=== PATIENT | male | born 1960 | race Hispanic/Latino ===

== ENCOUNTER 2025-04-04 08:32 | Emergency (ER) | payer BC ==
[2025-04-04 09:38] LABS: INR-International Normal Ratio 1.2; PTT 29.8 sec (22.9-36.1); Prothrombin Time 15.7 sec (12.0-14.7)
[2025-04-04 09:40] LABS: Hematocrit 38.9 % (42.0-52.0); Hemoglobin 13.4 g/dL (14.0-18.0); Mean Corpuscular Hemoglobin 30.6 pg (27.0-31.0); Mean Corpuscular Volume 88.8 fL (78.0-98.0); Platelet Count 406 10x3/uL (130-400); Red Blood Cell (RBC) Count 4.38 mill/uL (4.70-6.10); White Blood Cell (WBC) Count 7.45 10x3/uL (4.8-10.8)
[2025-04-04 09:49] LABS: ALT (SGPT) 16 U/L (Less than 45); AST (SGOT) 40 U/L (11-34); Albumin 1.9 g/dL (3.1-4.5); Alkaline Phosphatase 103 U/L (40-110); Anion Gap 12 mmol/L (10-20); BUN (Urea Nitrogen) 14 mg/dL (8.4-25.7); Bilirubin, Total 0.3 mg/dL (0.3-1.2); Calc. Creatinine Clearance 0 mL/min (70-130); Calcium 7.6 mg/dL (7.8-10.44); Carbon Dioxide 21 mmol/L (23-31); Chloride 101 mmol/L (98-107); Globulin 4.4 g/dL (2.4-3.5); Glucose 233 mg/dL (80-115); Lipase 54 U/L (8-78); Potassium 4.3 mmol/L (3.5-5.1); Sodium 130 mmol/L (136-145)
[2025-04-04 10:11] LABS: CAUTI Indications for Culture Dysuria,urgency,freq; Glucose, Urine (Dipstick) Normal (Negative); Leukocyte 25 Leu/uL (Negative); Protein, Urine (Dipstick) 30 mg/dL (Neg-Trace); RBC/HPF 0-3 HPF (0-3); Specific Gravity, Urine 1.022 (1.002-1.036)
[2025-04-04 10:13] LABS: Bacteria/HPF 1+ HPF (None Seen)
[2025-04-04 10:14] LABS: Anisocytosis SLIGHT = 6-15 cells HPF (0-5); Burr Cells SLIGHT = 2-5 cells HPF (0-1); Platelet Adequacy Comment Platelets Increased; Polychromasia SLIGHT = 2-3 cells HPF (0-2); Smudge Cells 7.8 %
[2025-04-04 10:16] LABS: Urine Culture Reflex No No
[2025-04-04] MEDS ORDERED: Iopamidol-370 76% 500 ML MDV (1 ML CHARGE) ONE (12:47)
== END 2025-04-04 15:10 | disposition home or self-care (01) ==
LOC: ERS 08:32
DX: K56.699 Other intestinal obstruction unspecified as to partial versus complete obstruction (principal); R73.9 Hyperglycemia, unspecified; E88.09 Other disorders of plasma-protein metabolism, not elsewhere classified; E83.51 Hypocalcemia; E87.1 Hypo-osmolality and hyponatremia; K52.89 Other specified noninfective gastroenteritis and colitis
CPT/HCPCS: 36415; 74174; 80053; 81001; 83605; 83690; 85025; 85610; 85730; 87040; 93005; 94760; 96360; 96361; Q9967

== ENCOUNTER 2025-04-05 20:19 | Inpatient (IN) | payer BC ==
[~2025-04-05 20:19] MED LIST: Iopamidol-370 76% 500 ML MDV (1 ML CHARGE) ONE
[2025-04-05 21:32] LABS: Hematocrit 36.5 % (42.0-52.0); Hemoglobin 12.5 g/dL (14.0-18.0); Mean Corpuscular Hemoglobin 30.6 pg (27.0-31.0); Mean Corpuscular Volume 89.5 fL (78.0-98.0); Platelet Count 348 10x3/uL (130-400); Red Blood Cell (RBC) Count 4.08 mill/uL (4.70-6.10); White Blood Cell (WBC) Count 8.32 10x3/uL (4.8-10.8)
[2025-04-05 21:45] LABS: ALT (SGPT) 19 U/L (Less than 45); AST (SGOT) 28 U/L (11-34); Albumin 1.8 g/dL (3.1-4.5); Alkaline Phosphatase 109 U/L (40-110); Anion Gap 10 mmol/L (10-20); BUN (Urea Nitrogen) 18 mg/dL (8.4-25.7); Bilirubin, Total 0.3 mg/dL (0.3-1.2); Calc. Creatinine Clearance 0 mL/min (70-130); Calcium 7.6 mg/dL (7.8-10.44); Carbon Dioxide 23 mmol/L (23-31); Chloride 102 mmol/L (98-107); Globulin 3.9 g/dL (2.4-3.5); Glucose 178 mg/dL (80-115); Lipase 50 U/L (8-78); Potassium 4.3 mmol/L (3.5-5.1); Sodium 131 mmol/L (136-145)
[2025-04-05 22:07] LABS: Platelet Adequacy Comment Platelets Normal; RBC Morphology Within Normal Limits; Smudge Cells 3.7 %
[2025-04-05] MEDS ORDERED: LevoFLOXacin 750 mg/D5W 150 ml Premix Bag ONE (22:26)
[2025-04-05 23:32] LABS: CAUTI Indications for Culture Pelvic or flank pain; Glucose, Urine (Dipstick) Normal (Negative); Leukocyte Negative Leu/uL (Negative); Protein, Urine (Dipstick) Negative (Neg-Trace); RBC/HPF None Seen HPF (0-3); Specific Gravity, Urine 1.019 (1.002-1.036); WBC/HPF 0-3 HPF (0-3)
[2025-04-05 23:38] LABS: Bacteria/HPF 1+ HPF (None Seen)
[2025-04-05 23:39] LABS: Urine Culture Reflex No No
[2025-04-06] MEDS ORDERED: metroNIDAZOLE 500 MG (100 mL) BAG ONE (00:26)
[2025-04-06 02:52] VITALS: BMI 21.6
[2025-04-06] MEDS: Simethicone Chewable 80 MG TAB PO SCH (03:01)
[2025-04-06 03:07] LABS: Hematocrit 37.7 % (42.0-52.0); Hemoglobin 12.6 g/dL (14.0-18.0); Mean Corpuscular Hemoglobin 30.5 pg (27.0-31.0); Mean Corpuscular Volume 91.3 fL (78.0-98.0); Platelet Count 363 10x3/uL (130-400); Red Blood Cell (RBC) Count 4.13 mill/uL (4.70-6.10); White Blood Cell (WBC) Count 9.28 10x3/uL (4.8-10.8)
[2025-04-06 03:08] LABS: ALT (SGPT) 17 U/L (Less than 45); AST (SGOT) 23 U/L (11-34); Albumin 1.9 g/dL (3.1-4.5); Alkaline Phosphatase 104 U/L (40-110); Anion Gap 11 mmol/L (10-20); BUN (Urea Nitrogen) 15 mg/dL (8.4-25.7); Bilirubin, Total 0.4 mg/dL (0.3-1.2); Calc. Creatinine Clearance 126 mL/min (70-130); Calcium 7.4 mg/dL (7.8-10.44); Carbon Dioxide 23 mmol/L (23-31); Chloride 102 mmol/L (98-107); Globulin 3.8 g/dL (2.4-3.5); Glucose 129 mg/dL (80-115); Potassium 4.0 mmol/L (3.5-5.1); Sodium 132 mmol/L (136-145)
[2025-04-06 03:49] LABS: Platelet Adequacy Comment Platelets Normal; RBC Morphology Within Normal Limits; Smudge Cells 14.1 %
[2025-04-06] MEDS: D5 1/2 NS w/20 mEq KCL 1,000 ML IV SCH (13:36)
[2025-04-06] MEDS: LevoFLOXacin 750 mg/D5W 750 MG in Premix 1 BAG IVPB SCH (22:02)
[2025-04-07 05:29] LABS: Hematocrit 35.5 % (42.0-52.0); Hemoglobin 11.7 g/dL (14.0-18.0); Mean Corpuscular Hemoglobin 30.3 pg (27.0-31.0); Mean Corpuscular Volume 92.0 fL (78.0-98.0); Platelet Count 295 10x3/uL (130-400); Red Blood Cell (RBC) Count 3.86 mill/uL (4.70-6.10); White Blood Cell (WBC) Count 10.58 10x3/uL (4.8-10.8)
[2025-04-07 05:42] LABS: Anion Gap 8 mmol/L (10-20); BUN (Urea Nitrogen) 13 mg/dL (8.4-25.7); Calc. Creatinine Clearance 105 mL/min (70-130); Calcium 6.7 mg/dL (7.8-10.44); Carbon Dioxide 27 mmol/L (23-31); Chloride 102 mmol/L (98-107); Glucose 127 mg/dL (80-115); Potassium 4.0 mmol/L (3.5-5.1); Sodium 133 mmol/L (136-145)
[2025-04-07 05:55] LABS: Anisocytosis SLIGHT = 6-15 cells HPF (0-5); Platelet Adequacy Comment Platelets Normal; Polychromasia SLIGHT = 2-3 cells HPF (0-2)
[2025-04-07] MEDS: CALCIUM GLUC 1 GM/NS 50 ML 1 GM in Premix 1 BAG IVPB SCH (06:17)
[2025-04-07] MEDS: Albumin 25% 25 GM (100 mL) BOT IVPB SCH (07:39)
[2025-04-07] MEDS ORDERED: fentaNYL PF 100 MCG/2 ML SYRINGE ONE ×2 (09:26→12:00)
[2025-04-07] MEDS ORDERED: Rocuronium Bromide 10 MG/ML (10ML VIAL) ONE ×2 (09:26→11:59)
[2025-04-07] MEDS ORDERED: Lidocaine 1% PF 5 ML VIAL ONE ×2 (09:26→11:59)
[2025-04-07] MEDS ORDERED: Ondansetron PF 4 MG/2 ML Vial ONE ×2 (09:26→11:59)
[2025-04-07] MEDS ORDERED: PROPOFOL 20 ML ONE ×2 (09:26→11:59)
[2025-04-07] MEDS ORDERED: metroNIDAZOLE 500 MG (100 mL) BAG ONE (10:05)
[2025-04-07] MEDS ORDERED: SUCCINYLCHOLINE/SOD CL,ISO/PF 200 MG/10 ML SYRINGE FS ONE (10:18)
[2025-04-07] MEDS ORDERED: Lidocaine 1% w/Epinephrine 1:100K 20 ML VIAL ONE (10:40)
[2025-04-07 10:52] VITALS: BMI 21.6
[2025-04-07] MEDS ORDERED: SUGAMMADEX SODIUM 200 MG/2 ML VIAL ONE ×2 (11:18→13:49)
[2025-04-07] MEDS ORDERED: Ondansetron HCl/PF 4 MG in Sodium Chloride 0.9% 50 ML IVPB PRN (11:41)
[2025-04-07] MEDS ORDERED: Ondansetron PF 4 MG/2 ML Vial IVP PRN ×2 (12:18→12:19)
[2025-04-07] MEDS ORDERED: Ketorolac Tromethamine 30 MG (1 mL) VIAL ONE (13:47)
[2025-04-08] MEDS: Pantoprazole 40 MG VIAL IVP SCH (09:35)
[2025-04-08] MEDS ORDERED: Acetaminophen 325 MG TAB PO PRN (18:36)
[2025-04-08] MEDS: HYDROcodone/Acetaminophen 7.5/325 mg Tablet PO PRN (19:00)
[2025-04-08 22:21] LABS: #Basophils 0.05 10x3/uL (0.0-0.2); #Eosinophils 0.03 10x3/uL (0.0-0.7); #Monocytes 0.53 10x3/uL (0.11-0.59); #Neutrophils 4.82 10x3/uL (1.40-6.50); %Basophils 0.7 % (0.0-1.0); %Eosinophils 0.4 % (0.0-10.0); %Lymphocytes 24.1 % (21.0-51.0); %Monocytes 7.2 % (0.0-10.0); %Neutrophils 65.7 % (42.0-75.0); Hematocrit 35.4 % (42.0-52.0); Hemoglobin 11.5 g/dL (14.0-18.0); Mean Corpuscular Hemoglobin 31.0 pg (27.0-31.0); Mean Corpuscular Volume 95.4 fL (78.0-98.0); Platelet Count 226 10x3/uL (130-400); Red Blood Cell (RBC) Count 3.71 mill/uL (4.70-6.10); White Blood Cell (WBC) Count 7.34 10x3/uL (4.8-10.8)
[2025-04-09 04:37] LABS: Hematocrit 32.6 % (42.0-52.0); Hemoglobin 10.9 g/dL (14.0-18.0); Mean Corpuscular Hemoglobin 30.9 pg (27.0-31.0); Mean Corpuscular Volume 92.4 fL (78.0-98.0); Platelet Count 219 10x3/uL (130-400); Red Blood Cell (RBC) Count 3.53 mill/uL (4.70-6.10); White Blood Cell (WBC) Count 7.36 10x3/uL (4.8-10.8)
[2025-04-09 04:47] LABS: ALT (SGPT) 7 U/L (Less than 45); AST (SGOT) 16 U/L (11-34); Albumin 1.8 g/dL (3.1-4.5); Alkaline Phosphatase 70 U/L (40-110); Anion Gap 8 mmol/L (10-20); BUN (Urea Nitrogen) 8 mg/dL (8.4-25.7); Bilirubin, Total 0.5 mg/dL (0.3-1.2); Calc. Creatinine Clearance 106 mL/min (70-130); Calcium 6.9 mg/dL (7.8-10.44); Carbon Dioxide 25 mmol/L (23-31); Chloride 101 mmol/L (98-107); Globulin 2.9 g/dL (2.4-3.5); Glucose 98 mg/dL (80-115); Potassium 4.0 mmol/L (3.5-5.1); Sodium 130 mmol/L (136-145)
[2025-04-09 05:32] LABS: Macrocytosis SLIGHT = 6-15 cells HPF (0-5); Platelet Adequacy Comment Platelets Normal; Polychromasia SLIGHT = 2-3 cells HPF (0-2)
[2025-04-09] MEDS: CALCIUM GLUC 1 GM/NS 50 ML 1 GM in Premix 1 BAG IVPB SCH (05:57)
[2025-04-09] MEDS ORDERED: D5 1/2 NS w/20 mEq KCL 1,000 ML IV SCH (06:40)
[2025-04-10 05:41] LABS: #Basophils 0.04 10x3/uL (0.0-0.2); #Eosinophils 0.08 10x3/uL (0.0-0.7); #Monocytes 0.78 10x3/uL (0.11-0.59); #Neutrophils 6.62 10x3/uL (1.40-6.50); %Basophils 0.4 % (0.0-1.0); %Eosinophils 0.8 % (0.0-10.0); %Lymphocytes 26.5 % (21.0-51.0); %Monocytes 7.5 % (0.0-10.0); %Neutrophils 63.4 % (42.0-75.0); Hematocrit 35.0 % (42.0-52.0); Hemoglobin 11.7 g/dL (14.0-18.0); Mean Corpuscular Hemoglobin 30.5 pg (27.0-31.0); Mean Corpuscular Volume 91.1 fL (78.0-98.0); Platelet Count 202 10x3/uL (130-400); Red Blood Cell (RBC) Count 3.84 mill/uL (4.70-6.10); White Blood Cell (WBC) Count 10.43 10x3/uL (4.8-10.8)
[2025-04-10 06:13] LABS: ALT (SGPT) 8 U/L (Less than 45); AST (SGOT) 16 U/L (11-34); Albumin 1.7 g/dL (3.1-4.5); Alkaline Phosphatase 78 U/L (40-110); Anion Gap 7 mmol/L (10-20); BUN (Urea Nitrogen) 13 mg/dL (8.4-25.7); Bilirubin, Total 0.4 mg/dL (0.3-1.2); Calc. Creatinine Clearance 91 mL/min (70-130); Calcium 7.1 mg/dL (7.8-10.44); Carbon Dioxide 26 mmol/L (23-31); Chloride 102 mmol/L (98-107); Globulin 3.2 g/dL (2.4-3.5); Glucose 149 mg/dL (80-115); Potassium 3.6 mmol/L (3.5-5.1); Sodium 131 mmol/L (136-145)
[2025-04-10] MEDS: CALCIUM GLUC 1 GM/NS 50 ML 1 GM in Premix 1 BAG IVPB SCH (08:08)
[2025-04-11 08:10] VITALS: BP 93/65; TEMP 98.2
[2025-04-11] MEDS: HYDROcodone/Acetaminophen 7.5/325 mg Tablet PO PRN (09:07)
== END 2025-04-11 10:25 | disposition home or self-care (01) | DRG 330 ==
LOC: ERS 20:19 → SURG A 04-06 01:03
PROVIDERS: ADMIT Surgery; ATTEND Surgery
PROC: 0D1N4Z4 Bypass Sigmoid Colon to Cutaneous, Percutaneous Endoscopic Approach (ICD-10-PCS; principal; 2025-04-07)
DX: K56.699 Other intestinal obstruction unspecified as to partial versus complete obstruction (principal); E87.1 Hypo-osmolality and hyponatremia; Z98.890 Other specified postprocedural states; Z79.899 Other long term (current) drug therapy
CPT/HCPCS: 36415; 36416; 71045; 74018; 74174; 74177; 80048; 80053; 81001; 83605; 83690; 85025; 85610; 85730; 87040; 87086; 93005; 94760; 96360; 96361; 96374; 96375; 97139; A4649; J0613; J1100; J1885; J1956; J2270; J2405; J2470; J2543; J2704; J3010; J3480; J7030; P9047; Q9967

== ENCOUNTER 2025-06-17 10:15 | Outpatient (CLI) | payer BC | END 2025-06-17 10:16 | disposition home or self-care (01) | LOC: BICRAD 10:15 | PROVIDERS: ATTEND Internal Medicine Gastroenterology | DX: K50.10 Crohn's disease of large intestine without complications (principal); R76.11 Nonspecific reaction to tuberculin skin test without active tuberculosis | CPT/HCPCS: 71046 ==